=== PATIENT | male | born 1955 | race African-American/Black ===

== ENCOUNTER → 2018-02-16 | Outpatient (CLI) | payer OTHER ==
--- NOTE | ~2018-02-16 | SLE ---
[facility] [place] [address] POLYSOMNOGRAPHY STUDY Name: DARRELL HOLGUIN [facility]: [id number] Admission: 02/16/18 Attend Phys: Carloz Umana MD Discharge: Date of : 51 Report #: [id number] THIS REPORT FOR: //name// CC: Carloz Umana FAM physician/PCP Yannick Perales MD DATE OF SERVICE: 02/16/2018 ATTENDING PHYSICIAN: Dr. Yannick Perales. The patient is a 62-year-old who weighs 235 pounds and is 71 inches tall with a BMI of 32.8. The patient's Barton score was 4. The patient has been on CPAP at 10 cm water at home. However, he has been having excessive daytime somnolence. Another split night study was requested by primary care physician. During the night study, the patient spent 436 minutes in bed and slept for 301 minutes with a low sleep efficiency of 69%. Sleep latency was 3.3 minutes with a REM latency of 60.3 minutes. Both were short. Overall sleep architecture showed increased stage 1 and stage 2 sleep, absent slow wave and reduced REM sleep, which was 9.6% of the total sleep time. During the night study, the patient had 2 obstructive and 2 central apneas and 89 hypopneas. The patient's apnea-hypopnea index was 18.5 per hour with a REM index of 22.8 per hour and a supine index of 21.8 per hour. EKG monitoring revealed an average heart rate of 60 beats per minute with a maximum of 89 beats per minute, normal sinus rhythm. No sustained arrhythmias observed. No clinically significant PLMS observed. Nocturnal oximetry study revealed an average oxygen saturation of 91% with the lowest of 82%. 80 minutes were spent at oxygen saturation of less than 89%. The patient did meet the criteria for CPAP initiation, but it was late in the night and as a result there was not enough time to initiate CPAP. IMPRESSION: 1. Moderate sleep apnea-hypopnea syndrome at an apnea-hypopnea index of 18.5 per hour with a REM apnea-hypopnea index of 22.8 per hour. 2. Nocturnal hypoxia secondary to obstructive sleep apnea. 3. No clinically significant periodic limb movements of sleep. RECOMMENDATIONS: 1. The patient would benefit from return to the sleep lab for CPAP titration [address] [address] POLYSOMNOGRAPHY STUDY Name: HOLGUINDARRELL Room #: REG AL[facility]ONSO Oden#: [id number] Admission: 02/16/18 Attend Phys: Carloz Umana MD Discharge: Date of : 51 Report #: [id number] study. 2. Once optimum CPAP pressure is achieved, then follow up in 4-6 weeks to assess compliance with CPAP and to document clinical improvement. 3. Weight loss is strongly advised. 4. Avoid [employer] depressants. 5. Cautioned regarding driving until symptoms of sleep apnea have resolved with the use of CPAP. <ELECTRONICALLY SIGNED> By: Carloz Umana MD 02/20/18 1747 [id number] 1620 Carloz Umana MD /nt
== END ==
LOC: SLEEPLAB 02-11 15:15
DX: G47.33 Obstructive sleep apnea (adult) (pediatric) (principal); R09.02 Hypoxemia

== ENCOUNTER → 2018-05-30 | Outpatient (CLI) | payer OTHER | LOC: MRI 11:46 | DX: I63.50 Cerebral infarction due to unspecified occlusion or stenosis of unspecified cerebral artery (principal); R90.82 White matter disease, unspecified ==